=== PATIENT | female | born 1990 | race African-American/Black ===

== ENCOUNTER 2019-10-17 05:17 | Emergency (ER) | payer OTHER ==
[~2019-10-17] VITALS: Ht 172.7 cm; Wt 102.0 kg
[2019-10-17 05:18] VITALS: BP 128/82
[2019-10-17] MEDS ORDERED: IBUPROFEN 600MG TABLET PO ONE (05:45)
[2019-10-17] MEDS ORDERED: PREDNISONE 20MG TABLET PO ONE (06:30)
== END 2019-10-17 08:04 | disposition home or self-care (01) ==
LOC: ER 05:17
DX: M10.9 Gout, unspecified (principal); M79.674 Pain in right toe(s)
CPT/HCPCS: 73630; 99283; J7512

== ENCOUNTER 2021-11-06 14:03 | Emergency (ER) | payer OTHER ==
[~2021-11-06] VITALS: Ht 162.6 cm; Wt 92.0 kg
[2021-11-06 14:31] VITALS: BP 118/67
[2021-11-06 15:16] LABS: BASOPHILS % 0.8 % (0.0-2.0); HEMATOCRIT. 39.4 % (36.0-48.0); HEMOGLOBIN. 13.3 g/dL (12.0-16.0); LYMPHOCYTES % 28.4 % (20.0-50.0); MEAN CORPUSCULAR HEMOGLOBIN 30.1 pg (28.0-32.0); MEAN CORPUSCULAR VOLUME 89.3 fL (81.0-99.0); MEAN PLATELET VOLUME 7.3 fl (7.4-10.4); MONOCYTES % 7.5 % (2.0-8.0); NEUTROPHILS % 61.3 % (40.0-76.0); PLATELET 309 x1000/uL (130-400); RED BLOOD CELL COUNT 4.42 mill/uL (4.2-5.4); RED CELL DISTRIBUTION WIDTH 13.1 % (11.6-14.6)
[2021-11-06 15:30] LABS: CHLORIDE 105 mEq/L (98-107)
[2021-11-06 15:41] LABS: B-HCG QUANTITATIVE 515 mIU/mL (<3)
[2021-11-06 17:46] LABS: CLARITY URINE CLEAR (CLEAR); COLOR URINE YELLOW (YELLOW); KETONES URINE NEGATIVE (NEGATIVE); LEUKOCYTE ESTERASE URINE NEGATIVE (NEGATIVE); NITRITE URINE NEGATIVE (NEGATIVE); OCCULT BLOOD URINE 2+ (NEGATIVE); PROTEIN URINE NEGATIVE (NEGATIVE); SPECIFIC GRAVITY URINE 1.004 (1.005-1.030); UROBILINOGEN URINE 0.2 E.U./dL (0.2-1.0)
[2021-11-06] MEDS ORDERED: TOPUD PO (18:26)
== END 2021-11-06 18:52 | disposition home or self-care (01) ==
LOC: ER 14:38
DX: O02.1 Missed abortion (principal)
CPT/HCPCS: 36415; 76830; 76856; 80053; 81003; 84702; 85025; 86850; 86900; 99284

== ENCOUNTER 2022-02-21 21:10 | Emergency (ER) | payer OTHER, MEDICAID ==
[~2022-02-21] VITALS: Ht 160 cm; Wt 112.4 kg
[~2022-02-21 21:10] MED LIST: TOPUD PO
[2022-02-21 21:18] VITALS: BP 128/66
== END 2022-02-21 23:25 | disposition left against medical advice (07) ==
LOC: ER 21:10
DX: Z53.21 Procedure and treatment not carried out due to patient leaving prior to being seen by health care provider (principal); R10.30 Lower abdominal pain, unspecified
CPT/HCPCS: 81025